=== PATIENT | female | born 1975 | race Caucasian/White ===

== ENCOUNTER 2019-11-07 10:00 | Outpatient (CLI) | payer OTHER | END 2019-11-07 16:43 | disposition home or self-care (01) | LOC: D.MAMMO 10:00 | PROVIDERS: ATTEND Plastic Surgery | DX: Z12.31 Encounter for screening mammogram for malignant neoplasm of breast (principal) ==

== ENCOUNTER 2020-06-03 17:00 | Outpatient (CLI) | payer OTHER | END 2020-06-03 23:59 | disposition home or self-care (01) | LOC: D.MAMMO 17:00 | PROVIDERS: ATTEND Family Medicine | DX: R92.2 Inconclusive mammogram (principal) ==